=== PATIENT | female | born 2005 | race Caucasian/White ===

== ENCOUNTER 2024-10-14 02:54 | Emergency (ER) | payer OTHER, SELFPAY ==
[2024-10-14] VITALS (7 sets, daily range): BP systolic 111–138; BP diastolic 61–84; PULSE 68–98; RESP 14–22; TEMP 36.9–37; O2SAT 97–99; BMI 27.8
--- NOTE | 2024-10-14 03:00 | ECG_ITS ---
APPROVED REPORT Exam: Resting ECG HR:99 bpm ECG Measurements Heart Rate 99 AXES KS 132 P 81 QRSd 89 QRS 92 QT 336 T 57 QTc 392 Conclusion SINUS RHYTHM BORDERLINE RIGHT AXIS DEVIATION [QRS AXIS > 90] POSSIBLE RIGHT VENTRICULAR CONDUCTION DELAY [RSR (QR) IN V1/V2] No STEMI Electronically signed by : ELIZ XIE, 10/14/2024 23:02:23
--- NOTE | 2024-10-14 03:06 | XR_ITS ---
PROCEDURE INFORMATION: Exam: XR Chest Exam date and time: 10/14/2024 4:05 AM Age: 19 years old Clinical indication: Pain; Left-sided; Additional info: Cp TECHNIQUE: Imaging protocol: Radiologic exam of the chest. Views: 2 views. COMPARISON: No relevant prior studies available. FINDINGS: Lungs: Unremarkable. No consolidation. Pleural spaces: Unremarkable. No pleural effusion. No pneumothorax. Heart/Mediastinum: Unremarkable. No cardiomegaly. Bones/joints: Unremarkable. IMPRESSION: No acute findings.
[2024-10-14 03:20] LABS: Albumin Level 4.3 g/dl (3.5-5.0); Chloride 100 mmol/L (98-107); Potassium 4.1 mmoL/L (3.5-5.1); Sodium 135 mmol/L (136-145)
[2024-10-14 03:23] LABS: Alanine Aminotransferase 16 U/L (12-78); Albumin/Globulin Ratio 1.3 (1.1-1.8); Alkaline Phosphatase 66 U/L (38-126); Anion Gap 14.1 mEq/L (5-15); Aspartate Amino Transferase 36 U/L (14-36); Bilirubin,Total 0.7 mg/dl (0.2-1.3); Blood Urea Nitrogen 9 mg/dl (7-17); Carbon Dioxide 25 mmol/L (22.0-30.0); Creatinine Clearance Estimated 157 mL/min (50-200); Creatinine,Serum 0.60 mg/dl (0.52-1.04); Estimated Glomerular Filt Rate 127 ml/min (>60); GFR (African American) 154 ML/MIN (>60); Globulin 3.3 g/dL (1.3-3.2); Total Protein,Serum 7.6 g/dl (6.3-8.2)
[2024-10-14 03:24] LABS: Calcium 9.2 mg/dl (8.4-10.2); Glucose 109 mg/dl (74-100)
[2024-10-14 03:33] LABS: NT Pro Brain Natriuretic Pep. 68.6 pg/mL (0-125)
--- NOTE | 2024-10-14 03:59 | [facility].EDCP ---
Discharge Plan Disposition Patient Disposition: Home, Self-Care Condition: Good Activity Restrictions/Add. Instructions Additional Instructions/Restrictions: You can take Tylenol and ibuprofen at home for any persistent chest pain. Return to the emergency department or follow-up with your primary care provider for any acute worsening chest pain or shortness of breath. Clinical Impressions Clinical Impression: Chest pain Instructions Patient Instructions: DI for Chest Pain Print Language Print Language: Macedonian Discharge ED Provider: Elva Rahman <Elva Rahman MD - Last Filed: 10/14/24 07:01> General Chief Complaint: Chest Pain Stated Complaint: chest pain Time Seen by Provider: 10/14/24 03:05 Mode of Arrival: Ambulatory Source of Information: Patient Description of Symptoms (Recalled from ER Triage Doc. by RN): pt reports chest pain that began at 5-6pm, she took prilosec and omperpzol with out reilef. the pain radiates to her back and in between the shoulder blades. History of Present Illness HPI narrative: 19-year-old female presents to the ER for chest pain that began approximately 9 hours prior to arrival. Patient reports she took Rolaids, Mylanta, omeprazole prior to arrival without relief. She states it feels like pressure that starts in the very top of her stomach and radiates up through the chest and into the back. She had nausea earlier but that is gone, no vomiting. No headache or dizziness, no numbness, tingling, or weakness. Patient has never had symptoms like this before. She reports her pain is a 4 out of 10 right now. Patient takes oral control but no other daily medications, no known chronic medical conditions, no known drug allergies. No personal cardiac history. She denies any recent illness. No swelling in the legs or feet, no history of blood clot. No recent illness. Related Data Allergies Allergy/AdvReac Type Severity Reaction Status Date / Time No Known Allergies Allergy Verified 10/14/24 02:55 [facility] <Elva Rahman MD - Last Filed: 10/14/24 07:01> [facility] Disclaimer: The information contained in this section may have been updated after the patient was seen, as this information can be updated by other users. Social History (Updated 10/14/24 @ 07:01 by Elva Rahman MD) Smoking Status: Never smoker alcohol intake: never current occupational status: other Travel in the last 8 weeks?: None <Elva Rahman MD - Last Filed: 10/14/24 07:01> ROS Obtained: Yes Systems reviewed as appropriate & no additional complaints except as documented Per HPI Physical Exam <MD Yamil Fong Last Filed: 10/14/24 07:01> General General appearance: alert and in no apparent distress Head Head exam: atraumatic and normocephalic Eye Eye exam: Present PERRL and EOMI ENT ENT exam: Present mucous membranes moist Neck Neck exam: Present normal inspection and full ROM Chest Chest inspection: Present symmetric chest wall rise; Absent tenderness Respiratory Respiratory exam: Present normal lung sounds bilaterally; Absent respiratory distress, wheezes or stridor Cardiovascular Cardiovascular exam: Present regular rate and normal rhythm Abdominal Exam Abdominal exam: Present soft and tenderness (Very mild midepigastric); Absent distention Extremities Exam Extremities exam: Present full ROM Neurological Exam Neurological exam: Present alert and oriented X3; Absent motor sensory deficit Psychiatric Psychiatric exam: Present normal affect and normal mood Skin Skin exam: Present warm and dry HEART Score <Elva Rahman MD - Last Filed: 10/14/24 07:01> HEART Score HEART Score assessment performed?: Yes History (anamnesis): Slightly suspicious ECG: Normal Age: <45 years Risk factors: No known risk factors Troponin: </= normal limit HEART Score: 0 <Marycarmen Evangelista DO - Last Filed: 10/14/24 17:04> HEART Score HEART Score: 0 Critical Care <MD Yamil Fong Last Filed: 10/14/24 07:01> Critical Care Time Critical Care Time: No Medical Decision Making <Elva Rahman MD - Last Filed: 10/14/24 07:01> [facility] Inquiry Pt receiving controlled substance: No Vital Signs Vital Signs: 10/14/24 03:05 10/14/24 03:30 10/14/24 03:45 Temperature 98.4 F Temperature Source Temporal Artery Scan Pulse Rate 89 98 H Pulse Rate [Right] 97 H Respiratory Rate 22 17 19 Blood Pressure 124/84 130/84 Blood Pressure [Right Arm] 138/84 Blood Pressure Mean Blood Pressure Mean [Right Arm] 102 Blood Pressure Source Blood Pressure Position 02 Sat by Pulse Oximetry 98 97 97 Oxygen Delivery Method Room Air 10/14/24 07:30 10/14/24 08:01 10/14/24 08:30 Temperature Temperature Source Pulse Rate 77 69 68 Pulse Rate [Right] Respiratory Rate 18 18 20 Blood Pressure 111/72 111/61 112/70 Blood Pressure [Right Arm] Blood Pressure Mean 85 78 82 Blood Pressure Mean [Right Arm] Blood Pressure Source Blood Pressure Position 02 Sat by Pulse Oximetry 97 99 98 Oxygen Delivery Method 10/14/24 09:00 Temperature 98.6 F Temperature Source Oral Pulse Rate 86 Pulse Rate [Right] Respiratory Rate 14 Blood Pressure 112/76 Blood Pressure [Right Arm] Blood Pressure Mean Blood Pressure Mean [Right Arm] Blood Pressure Source Automatic Cuff Blood Pressure Position Supine 02 Sat by Pulse Oximetry Oxygen Delivery Method Room Air Lab Data Labs: Lab Results 10/14/24 02:57: PT Cancelled, INR Cancelled, Sodium 135 L, Potassium 4.1, Chloride 100, Carbon Dioxide 25, Anion Gap 14.1, BUN 9, Creatinine 0.60, Estimated Creat Clear 157, Estimated GFR 127, Est GFR ( Amer) 154, Glucose 109 H, Calcium 9.2, Total Bilirubin 0.7, AST 36, ALT 16, Alkaline Phosphatase 66, Troponin I < 0.01, NT-Pro-B Natriuret Pep 68.6, Total Protein 7.6, Albumin 4.3, Globulin 3.3 H, Albumin/Globulin Ratio 1.3, Serum HCG, Qual Negative 10/14/24 04:11: WBC 13.6 H, RBC 4.07 L, Hgb 12.4, Hct 35.7 L, MCV 87.7, MCH 30.5, MCHC 34.7, RDW 11.7, Plt Count 330, MPV 10.1, Neut % (Auto) 79.3, Lymph % (Auto) 13.8, [place] % (Auto) 6.3, Eos % (Auto) 0.1, Baso % (Auto) 0.2, Neut # (Auto) 10.8 H, Lymph # (Auto) 1.9, [place] # (Auto) 0.9, Eos # (Auto) 0.0, Baso # (Auto) 0.0, Lipase 58, HCV Ab BARNEY w/Rflx PCR Qn Negative, HIV Ag/Ab Combo Qual Negative 10/14/24 04:11 10/14/24 02:57 Response Orders (Tests/Meds): ED MEDICATIONS Discontinued Medications Generic Name Dose Route Start Last Admin Trade Name Nasreen PRN Reason Stop Dose Admin Aspirin 324 mg 10/14/24 03:06 10/14/24 04:13 Aspirin 81mg Chewable Tablet PO 10/14/24 03:07 324 mg ONCE ONE Administration Belladonna Alkaloids 60 ml 10/14/24 03:06 10/14/24 04:13 Belladonna Alkaloids 60 Ml Ml PO 10/14/24 03:07 60 ml ONCE ONE Administration Iopamidol 75 ml 10/14/24 07:05 10/14/24 07:06 Iopamidol-370 (76%);100ml Bottle IV 10/14/24 07:06 75 ml ONCE ONE Administration Ketorolac Tromethamine 15 mg 10/14/24 03:13 10/14/24 04:57 Ketorolac 30mg/Ml Vial IV 10/14/24 03:14 15 mg ONCE ONE Administration Nitroglycerin 0.4 mg 10/14/24 03:06 Nitroglycerin 0.4mg Sl Tablet SL 10/15/24 03:06 Q5MINP PRN Chest Pain Ondansetron HCl 4 mg 10/14/24 03:06 10/14/24 04:12 Ondansetron 4mg/2ml Vial IV 10/14/24 03:07 4 mg ONCE ONE Administration Sodium Chloride 50 ml 10/14/24 07:05 10/14/24 07:06 0.9 % Sodium Chloride 50 Ml Vial IV 10/14/24 07:06 50 ml ONCE ONE Administration Sodium Chloride 10 ml 10/14/24 07:05 10/14/24 07:07 Sodium Chloride 0.9% 10ml Syr (Rad Only) IV 11/13/24 07:04 10 ml NEEDED PRN Administration Maintain IV Site ORDERS Category Date Time Status CT angio chest PE protocol Stat Cat Scan 10/14/24 06:27 Completed XR chest 2V Stat Exams 10/14/24 03:06 Completed Complete Blood Count Auto Diff Stat Lab 10/14/24 04:11 Completed Comprehensive Metabolic Panel Stat Lab 10/14/24 02:57 Completed HCG Qualitative, Serum Stat Lab 10/14/24 02:57 Completed HIV Combo Stat Lab 10/14/24 04:11 Completed Hepatitis C Ab Qual. W/ RFX Stat Lab 10/14/24 04:11 Completed Lipase Stat Lab 10/14/24 04:11 Completed NT Pro Brain Natriuretic Pep. Stat Lab 10/14/24 02:57 Completed Troponin I Stat Lab 10/14/24 02:57 Completed MDM Narrative Medical Decision Narrative: In summary, this otherwise healthy 19-year-old female presents to the emergency department today with chest pain. On initial evaluation patient is hemodynamically stable, afebrile, chest pain is not reproducible on exam, patient has mild epigastric tenderness to palpation with no rebound or guarding. Differential diagnosis includes but is not limited to ACS, PE, pneumothorax, esophageal spasm, pancreatitis, electrolyte abnormality, dehydration, among others. Based on these concerns, I ordered serum labs, cardiac workup, chest x-ray, D-dimer, lipase. ECG personally interpreted demonstrates normal sinus rhythm, rate 99, borderline right axis, normal GA and QTc, no STEMI. Patient received aspirin, nitro, GI cocktail, Toradol, Zofran for treatment. Labs personally reviewed demonstrate leukocytosis WBC 13.6 is nonspecific, nonactionable, no anemia, normal platelets, PT/INR slightly elevated but nonspecific and nonactionable, CMP nonactionable, initial troponin undetectably low less than 0.01 and I do not believe serial troponins are indicated on this patient given her extended time period of chest pain. If it was cardiac in nature her troponin should be elevated by now. Lipase normal at 58 reassuring against pancreatitis, test negative. I finally received a call from lab that they had tried to run the D-dimer multiple times after they had finally gotten their analyzer fixed, but unfortunately the sample was clotted. At this point I offered the patient the option of CTA PE versus trying to run the D-dimer again on a new sample and taken the chance that a PE scan may still be indicated. After shared decision-making and discussion of risks and benefits she would prefer to just proceed with the PET scan which has been ordered. XR personally interpreted demonstrates no acute thoracic abnormality, see radiology read for final interpretation. On reassessment patient continues to rest comfortably, she has been completely asymptomatic for multiple hours now. CTA PE is pending. Patient handed off to Dr. Evangelista in stable condition pending CT results. <Marycarmen Evangelista, DO - Last Filed: 10/14/24 17:04> Vital Signs Vital Signs: 10/14/24 03:05 10/14/24 03:30 10/14/24 03:45 Temperature 98.4 F Temperature Source Temporal Artery Scan Pulse Rate 89 98 H Pulse Rate [Right] 97 H Respiratory Rate 22 17 19 Blood Pressure 124/84 130/84 Blood Pressure [Right Arm] 138/84 Blood Pressure Mean Blood Pressure Mean [Right Arm] 102 Blood Pressure Source Blood Pressure Position 02 Sat by Pulse Oximetry 98 97 97 Oxygen Delivery Method Room Air 10/14/24 07:30 10/14/24 08:01 10/14/24 08:30 Temperature Temperature Source Pulse Rate 77 69 68 Pulse Rate [Right] Respiratory Rate 18 18 20 Blood Pressure 111/72 111/61 112/70 Blood Pressure [Right Arm] Blood Pressure Mean 85 78 82 Blood Pressure Mean [Right Arm] Blood Pressure Source Blood Pressure Position 02 Sat by Pulse Oximetry 97 99 98 Oxygen Delivery Method 10/14/24 09:00 Temperature 98.6 F Temperature Source Oral Pulse Rate 86 Pulse Rate [Right] Respiratory Rate 14 Blood Pressure 112/76 Blood Pressure [Right Arm] Blood Pressure Mean Blood Pressure Mean [Right Arm] Blood Pressure Source Automatic Cuff Blood Pressure Position Supine 02 Sat by Pulse Oximetry Oxygen Delivery Method Room Air Lab Data Labs: Lab Results 10/14/24 02:57: PT Cancelled, INR Cancelled, Sodium 135 L, Potassium 4.1, Chloride 100, Carbon Dioxide 25, Anion Gap 14.1, BUN 9, Creatinine 0.60, Estimated Creat Clear 157, Estimated GFR 127, Est GFR ( Amer) 154, Glucose 109 H, Calcium 9.2, Total Bilirubin 0.7, AST 36, ALT 16, Alkaline Phosphatase 66, Troponin I < 0.01, NT-Pro-B Natriuret Pep 68.6, Total Protein 7.6, Albumin 4.3, Globulin 3.3 H, Albumin/Globulin Ratio 1.3, Serum HCG, Qual Negative 10/14/24 04:11: WBC 13.6 H, RBC 4.07 L, Hgb 12.4, Hct 35.7 L, MCV 87.7, MCH 30.5, MCHC 34.7, RDW 11.7, Plt Count 330, MPV 10.1, Neut % (Auto) 79.3, Lymph % (Auto) 13.8, [place] % (Auto) 6.3, Eos % (Auto) 0.1, Baso % (Auto) 0.2, Neut # (Auto) 10.8 H, Lymph # (Auto) 1.9, [place] # (Auto) 0.9, Eos # (Auto) 0.0, Baso # (Auto) 0.0, Lipase 58, HCV Ab BARNEY w/Rflx PCR Qn Negative, HIV Ag/Ab Combo Qual Negative Response Orders (Tests/Meds): ED MEDICATIONS Discontinued Medications Generic Name Dose Route Start Last Admin Trade Name Freq PRN Reason Stop Dose Admin Aspirin 324 mg 10/14/24 03:06 10/14/24 04:13 Aspirin 81mg Chewable Tablet PO 10/14/24 03:07 324 mg ONCE ONE Administration Belladonna Alkaloids 60 ml 10/14/24 03:06 10/14/24 04:13 Belladonna Alkaloids 60 Ml Ml PO 10/14/24 03:07 60 ml ONCE ONE Administration Iopamidol 75 ml 10/14/24 07:05 10/14/24 07:06 Iopamidol-370 (76%);100ml Bottle IV 10/14/24 07:06 75 ml ONCE ONE Administration Ketorolac Tromethamine 15 mg 10/14/24 03:13 10/14/24 04:57 Ketorolac 30mg/Ml Vial IV 10/14/24 03:14 15 mg ONCE ONE Administration Nitroglycerin 0.4 mg 10/14/24 03:06 Nitroglycerin 0.4mg Sl Tablet SL 10/15/24 03:06 Q5MINP PRN Chest Pain Ondansetron HCl 4 mg 10/14/24 03:06 10/14/24 04:12 Ondansetron 4mg/2ml Vial IV 10/14/24 03:07 4 mg ONCE ONE Administration Sodium Chloride 50 ml 10/14/24 07:05 10/14/24 07:06 0.9 % Sodium Chloride 50 Ml Vial IV 10/14/24 07:06 50 ml ONCE ONE Administration Sodium Chloride 10 ml 10/14/24 07:05 10/14/24 07:07 Sodium Chloride 0.9% 10ml Syr (Rad Only) IV 11/13/24 07:04 10 ml NEEDED PRN Administration Maintain IV Site ORDERS Category Date Time Status CT angio chest PE protocol Stat Cat Scan 10/14/24 06:27 Completed XR chest 2V Stat Exams 10/14/24 03:06 Completed Complete Blood Count Auto Diff Stat Lab 10/14/24 04:11 Completed Comprehensive Metabolic Panel Stat Lab 10/14/24 02:57 Completed HCG Qualitative, Serum Stat Lab 10/14/24 02:57 Completed HIV Combo Stat Lab 10/14/24 04:11 Completed Hepatitis C Ab Qual. W/ RFX Stat Lab 10/14/24 04:11 Completed Lipase Stat Lab 10/14/24 04:11 Completed NT Pro Brain Natriuretic Pep. Stat Lab 10/14/24 02:57 Completed Troponin I Stat Lab 10/14/24 02:57 Completed MDM Narrative Medical Decision Narrative: In summary, this otherwise healthy 19-year-old female presents to the emergency department today with chest pain. On initial evaluation patient is hemodynamically stable, afebrile, chest pain is not reproducible on exam, patient has mild epigastric tenderness to palpation with no rebound or guarding. Differential diagnosis includes but is not limited to ACS, PE, pneumothorax, esophageal spasm, pancreatitis, electrolyte abnormality, dehydration, among others. Based on these concerns, I ordered serum labs, cardiac workup, chest x-ray, D-dimer, lipase. ECG personally interpreted demonstrates normal sinus rhythm, rate 99, borderline right axis, normal GA and QTc, no STEMI. Patient received aspirin, nitro, GI cocktail, Toradol, Zofran for treatment. Labs personally reviewed demonstrate leukocytosis WBC 13.6 is nonspecific, nonactionable, no anemia, normal platelets, PT/INR slightly elevated but nonspecific and nonactionable, CMP nonactionable, initial troponin undetectably low less than 0.01 and I do not believe serial troponins are indicated on this patient given her extended time period of chest pain. If it was cardiac in nature her troponin should be elevated by now. Lipase normal at 58 reassuring against pancreatitis, test negative. I finally received a call from lab that they had tried to run the D-dimer multiple times after they had finally gotten their analyzer fixed, but unfortunately the sample was clotted. At this point I offered the patient the option of CTA PE versus trying to run the D-dimer again on a new sample and taken the chance that a PE scan may still be indicated. After shared decision-making and discussion of risks and benefits she would prefer to just proceed with the PET scan which has been ordered. XR personally interpreted demonstrates no acute thoracic abnormality, see radiology read for final interpretation. On reassessment patient continues to rest comfortably, she has been completely asymptomatic for multiple hours now. CTA PE is pending. Patient handed off to Dr. Evangelista in stable condition pending CT results. Marycarmen Evangelista, DO On my assumption of the care, patient was resting comfortably. Patient CT PE showed no evidence of pulmonary embolism. Patient reported significant improvement in her symptoms. I recommended the patient use Tylenol ibuprofen at home for her symptoms return precautions were discussed and patient was otherwise discharged home in stable condition.
[2024-10-14 04:07] LABS: HCG Qualitative, Serum Negative (Negative)
[2024-10-14] MEDS: ONDANSETRON 4MG/2ML VIAL 4 MG IV (04:12)
[2024-10-14 04:13] LABS: Troponin I < 0.01 ng/ml (0.00-0.034)
[2024-10-14] MEDS: BELLADONNA ALKALOIDS 60 ML ML PO (04:13)
[2024-10-14] MEDS: ASPIRIN 81MG CHEWABLE TABLET 324 MG PO (04:13)
[2024-10-14 04:18] LABS: Hematocrit 35.7 % (37.0-47.0); Hemoglobin 12.4 g/dL (12.2-16.2); Immature Granulocytes % 0.3 %; Mean Corpuscular HGB Conc 34.7 g/dL (31.8-35.4); Mean Corpuscular Hemoglobin 30.5 pg (27.0-31.2); Mean Corpuscular Volume 87.7 fl (81-99); Nucleated Red Blood Cells % 0 %; Platelet Count 330 K/mm3 (142-424); Red Blood Count 4.07 M/mm3 (4.20-5.40); Red Cell Distribution Width-SD 37.5 fL; White Blood Count 13.6 K/mm3 (4.5-13.0)
[2024-10-14 04:24] LABS: Hepatitis C Ab Qual. W/ RFX NEGATIVE (Negative)
[2024-10-14 04:37] LABS: Lipase 58 U/L (23-300)
[2024-10-14] MEDS: KETOROLAC 30MG/ML VIAL 15 MG IV (04:57)
--- NOTE | 2024-10-14 06:27 | CT_ITS ---
FINAL REPORT TECHNIQUE: Thin section axial CT with contrast with multiplanar reconstruction This study was performed with techniques to keep radiation doses as low as reasonably achievable, (ALARA). Individualized dose reduction techniques using automated exposure control or adjustment of mA and/or kV according to the patient's size were employed. CLINICAL HISTORY: CP, unable to get dimer, on OCPs COMPARISON: None FINDINGS: Pulmonary vessels enhance in normal fashion without evidence of embolism. Thoracic aorta shows no dissection or aneurysm. No pulmonary mass or infiltrate is present. There is no significant pleural effusion. There is no significant pericardial effusion. No mediastinal or hilar adenopathy is present. There is mild degradation of overall image quality secondary to respiratory motion. IMPRESSION: 1. No evidence of pulmonary embolism Reviewed, Interpreted and Dictated by Ángel Lim MD Transcribed by Peggy Gagnon Authenticated and [facility]
[2024-10-14] MEDS: 0.9 % SODIUM CHLORIDE 50 ML VIAL IV (07:06)
[2024-10-14] MEDS: IOPAMIDOL-370 (76%);100ML BOTTLE 75 ML IV (07:06)
[2024-10-14] MEDS: SODIUM CHLORIDE 0.9% 10ML SYR (RAD ONLY) 10 ML IV (07:07)
--- NOTE | 2024-10-14 09:06 | PC.NURSE ---
spoke with arti from lab, reports clotting noted to blood sample. results of pt-ptt will be removed from chart as results are inaccurate from sample being clotted. notified
== END 2024-10-14 09:02 | disposition home or self-care (01) ==
PROVIDERS: Emergency Provider Emergency Medicine
DX: R07.9 Chest pain, unspecified (principal); R10.816 Epigastric abdominal tenderness
CPT/HCPCS: 71046; 71275; 80053; 83690; 83880; 84484; 84703; 85025; 86803; 87389; 93005; 96374; 96375; 99285; J1885; J2405; Q9967